=== PATIENT | female | born 2005 | race Asian ===

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

== ENCOUNTER 2024-05-17 06:16 | Emergency (ER) | payer OTHER ==
[~2024-05-17] VITALS: Ht 165.1 cm; Wt 60.0 kg
[2024-05-17 06:27] VITALS: TEMP 98
[2024-05-17] MEDS ORDERED: Home HYDROcodone/Acetaminophen 5/325 MG #4 TABS/PACK PO ONE (07:45)
[2024-05-17] MEDS ORDERED: PREDNISONE50 MG PO (07:57)
[2024-05-17] MEDS ORDERED: NORCO 325 MG-51 TAB PO (07:57)
[2024-05-17] MEDS ORDERED: predniSONE 10 MG TAB PO ONE (08:00)
[2024-05-17 08:16] VITALS: BP 117/84; PULSE 75
== END 2024-05-17 08:19 | disposition home or self-care (01) ==
LOC: COL.ER 06:16
DX: S79.821A Other specified injuries of right thigh, initial encounter (principal); X50.9XXA Other and unspecified overexertion or strenuous movements or postures, initial encounter
CPT/HCPCS: J7512